=== PATIENT | male | born 1965 | race Caucasian/White ===

== ENCOUNTER 2019-11-08 15:38 | Emergency (ER) | payer OTHER ==
[2019-11-08] MEDS ORDERED: LIDOCAINE 1% INJ 10MG/ML (20 ML MDV) SQ ONE (15:55)
[2019-11-08] MEDS ORDERED: DIPH,PERTUS(ACELL)TETVAC-LF 0.5 ML VIAL IM ONE (15:55)
[2019-11-08] MEDS ORDERED: SODIUM CHLORIDE 0.9% 500 ML 500 ML IV ONE (15:56)
--- NOTE | 2019-11-08 17:03 | XR ---
EXAMINATION TYPE: XR finger RT DATE OF EXAM: 11/08/2019 COMPARISON: None HISTORY: Laceration reported on thumb TECHNIQUE: Right index finger is examined in 3 projections. FINDINGS: The right index finger appears intact. No radiopaque foreign bodies are evident. Joint spac es are preserved. No acute osseous abnormality is evident. Correlate with the location of the patient's laceration. IMPRESSION: 1. Normal three-view right index finger.
--- NOTE | 2019-11-08 17:19 | ED ---
Wound/Laceration HPI - General Chief Complaint: Wound/Laceration Stated Complaint: finger laceration Time Seen by Provider: 11/08/19 15:50 Source: patient Mode of arrival: ambulatory Limitations: no limitations - History of Present Illness Initial Comments: 53yo male presenting to the ER for cc of right index finger laceration, patient states he lacerated his right index finger after sliding finger over exposed coil under a couch during transfer. Patient states the coil was intact. Does not believe there is foreign body. Patient states he has full ROM of the digit, denies decreased strength or fixed positioning or loss of sensation. Patient states bleeding is controlled. Unsure of last tetanus, Denies diabetes. Remaining ROS (-). Upon arrival patient appears well there is no signs of acute distress. - Related Data Allergies Allergy/AdvReac Type Severity Reaction Status Date / Time No Known Allergies Allergy Verified 11/08/19 15:46 Review of Systems ROS Statement: Those systems with pertinent positive or pertinent negative responses have been documented in the HPI. ROS Other: All systems not noted in ROS Statement are negative. Past Medical History History of Any Multi-Drug Resistant Organisms: None Reported Past Surgical History: Orthopedic Surgery Additional Past Surgical History / Comment(s): neck fusion Past Psychological History: No Psychological Hx Reported Smoking Status: Current every day smoker Past Alcohol Use History: None Reported Past Drug Use History: None Reported General Exam - General Exam Comments Initial Comments: General: The patient is awake and alert, in no distress Eye: +3 mm pupils are equal, round and reactive to light, extra-ocular movements are intact. No nystagmus. There is normal conjunctiva bilaterally. No signs of icterus. Cardiovascular: There is a regular rate and rhythm. No murmur, rub or gallop is appreciated. Respiratory: Lungs are clear to auscultation, respirations are non-labored, breath sounds are equal. No wheezes, stridor, rales, or rhonchi. Musculoskeletal: Laceration deformity noted see skin exam. Normal ROM at the MCP, DIP and PIP joitns of right index finger. Strength 5/5 at the MCP, DIP and PIP joints of the right index finger . Sensation intact. Radial pulses equal bilaterally 2+. Neurological: A&O x 3. CN II-XII intact grossly, There are no obvious motor or sensory deficits. Coordination appears grossly intact. Speech is normal. Skin: Skin is warm and dry and no rashes.. 1.5cm laceration on the pad of the right index finger Psychiatric: Cooperative, appropriate mood & affect, normal judgment. Limitations: no limitations Course Vital Signs 11/08/19 11/08/19 15:44 17:43 Temperature 97.7 F 98.2 F Pulse Rate 82 84 Respiratory 16 18 Rate Blood Pressure 153/91 147/93 O2 Sat by Pulse 96 98 Oximetry Procedures - Laceration Laceration #1 Consent Obtained: verbal consent Indication: laceration Site: other (right index finger) Size (cm): 0 (1.5cm) Description: linear Depth: simple, single layer Anesthetic Used: lidocaine 1% Anesthesia Technique: local infiltration Amount (mls): 1 Pre-repair: wound explored, irrigated extensively, deep structures intact Type of Sutures: nylon Size of Sutures: 5-0 Number of Sutures: 4 Technique: simple, interrupted Patient Tolerated Procedure: well, no complications Medical Decision Making - Medical Decision Making 53yo male presenting today for cc of laceration, cleansed, irrigated, repaired without complication, No sign of tendon injury or osseous injury. TDap Updated. No DM, wound appears clean. discussed suture care/ removal and return parameters including signs of infection, Case discussed with Dr. Valentin and patient was discharged appearing well. Disposition Clinical Impression: Laceration of index finger, Injury of right index finger Disposition: HOME SELF-CARE Condition: Good Instructions (If sedation given, give patient instructions): Finger Laceration (ED) Additional Instructions: Please use medication as discussed. Please follow-up with family doctor in the next 2 days, come in for sutures for removal in 7-10 days. Please return to emergency room if the symptoms increase or worsen or for any other concerns. Is patient prescribed a controlled substance at d/c from ED?: No Referrals: Willis Tuttle MD [Primary Care Provider] - 1-2 days Time of Disposition: 17:19
[2019-11-08] MEDS ORDERED: ACET/COD 300 MG/30 MG STARTER PACK 6 TAB BTL PO STA (17:37)
[2019-11-08 17:44] VITALS: BP 147/93; PULSE 84; RESP 18; TEMP 98.2
== END 2019-11-08 17:44 | disposition home or self-care (01) ==
LOC: EC 15:38
DX: S61.210A Laceration without foreign body of right index finger without damage to nail, initial encounter (principal); F17.200 Nicotine dependence, unspecified, uncomplicated; Z23 Encounter for immunization; W26.8XXA Contact with other sharp object(s), not elsewhere classified, initial encounter
CPT/HCPCS: 73140; 90715; 99283; 90471; 12001; J2001